=== PATIENT | male | born 1960 | race Caucasian/White ===

== ENCOUNTER 2024-03-31 10:10 | Outpatient (CLI) | payer OTHER, SELFPAY | END 2024-03-31 10:11 | disposition home or self-care (01) | LOC: NFLDREF 15:20 | PROVIDERS: PCP Family Medicine; Referring Provider Family Medicine; Visit Provider Family Medicine | DX: Z00.00 Encounter for general adult medical examination without abnormal findings (principal); I10 Essential (primary) hypertension; K22.0 Achalasia of cardia; R00.2 Palpitations; N18.9 Chronic kidney disease, unspecified; R53.83 Other fatigue; Z12.5 Encounter for screening for malignant neoplasm of prostate; Z76.89 Persons encountering health services in other specified circumstances | CPT/HCPCS: 80053; 80061; 84443; G0103 ==

== ENCOUNTER 2024-04-07 12:40 | Outpatient (CLI) | payer OTHER, SELFPAY | END 2024-04-07 12:41 | disposition home or self-care (01) | LOC: RAD 12:42 | PROVIDERS: PCP Family Medicine; Visit Provider Family Medicine | DX: R00.2 Palpitations (principal); I35.1 Nonrheumatic aortic (valve) insufficiency; I34.0 Nonrheumatic mitral (valve) insufficiency; I10 Essential (primary) hypertension | CPT/HCPCS: 93306 ==